=== PATIENT | male | born 1975 | race Caucasian/White ===

== ENCOUNTER 2023-12-01 11:18 | Inpatient (IN) | payer OTHER, SELFPAY ==
[2023-12-01 12:20] LABS: #Basophils 0.05 10x3/uL (0.0-0.2); %Basophils 0.7 % (0.0-1.0); %Eosinophils 1.8 % (0.0-10.0); %Lymphocytes 14.3 % (21.0-51.0); %Monocytes 4.5 % (0.0-10.0); %Neutrophils 78.4 % (42.0-75.0); Hematocrit 46.9 % (42.0-52.0); Mean Corpuscular HGB CONC 34.1 g/dL (32.0-36.0); Mean Corpuscular Hemoglobin 29.4 pg (27.0-31.0); Mean Corpuscular Volume 86.1 fL (78.0-98.0); Mean Platelet Volume 10.2 fL (7.4-10.4); Platelet Count 218 10x3/uL (130-400); RBC Distribution Width 12.2 % (11.5-14.5); Red Blood Cell (RBC) Count 5.45 mill/uL (4.70-6.10)
[2023-12-01 12:38] LABS: Acetaminophen Less than 10 mcg/mL (Less than 10); Alcohol Less than 10.0 mg/dL (Less than 10); Salicylate Less than 8.0 mg/dL (Less than 8.0)
[2023-12-01 12:40] LABS: ALT (SGPT) 29 U/L (8-55); AST (SGOT) 26 U/L (5-34); Albumin 3.9 g/dL (3.5-5.0); Alkaline Phosphatase 67 U/L (40-110); Anion Gap 13 mmol/L (10-20); BUN (Urea Nitrogen) 14 mg/dL (8.9-20.6); Calc. Creatinine Clearance 0 mL/min (70-130); Calcium 9.1 mg/dL (7.8-10.44); Carbon Dioxide 21 mmol/L (22-29); Chloride 106 mmol/L (98-107); Estimated GFR 106; Globulin 3.3 g/dL (2.4-3.5); Glucose 99 mg/dL (70-105); Potassium 4.6 mmol/L (3.5-5.1); Protein, Total 7.2 g/dL (6.0-8.3); Sodium 135 mmol/L (136-145)
[2023-12-01 12:44] LABS: Troponin I Less than 0.010 ng/mL (< 0.028)
[2023-12-01] MEDS ORDERED: Atropine Sulfate 1 mg/10 ml Syringe ONE (14:04)
[2023-12-01] MEDS ORDERED: Acetaminophen 325 MG TAB PO PRN (14:06)
[2023-12-01 14:17] LABS: Bacteria/HPF None Seen HPF (None Seen); Bilirubin Negative (Negative); Blood, Urine Negative (Negative); Clarity Clear (Clear); Glucose, Urine (Dipstick) Normal (Negative); Ketone, Urine Negative (Negative); Leukocyte Negative Leu/uL (Negative); Nitrite Negative (Negative); Protein, Urine (Dipstick) 10 mg/dL (Neg-Trace); RBC/HPF 0-3 HPF (0-3); Specific Gravity, Urine 1.021 (1.002-1.036); Squamous Epithelial None Seen HPF (0-3); Urobilinogen Normal mg/dL (Less than 2); WBC/HPF 0-3 HPF (0-3)
[2023-12-01 14:23] LABS: Amphetamine Not Detected (NotDetected); Barbiturates Screen Not Detected (NotDetected); Benzodiazepine Screen Not Detected (NotDetected); Cocaine Metabolite Screen Not Detected (NotDetected); Methadone Not Detected (NotDetected); Methamphetamine Not Detected (NotDetected); Opiate Screen Not Detected (NotDetected); Oxycodone Screen Not Detected (NotDetected); Phencyclidine (PCP) Not Detected (NotDetected); THC/Cannabinoid Screen Not Detected (NotDetected); Tricyclic Screen Not Detected (NotDetected)
[2023-12-01 15:17] LABS: Lactic Acid 2.07 mmol/L (0.5-2.2)
[2023-12-01 15:27] LABS: Troponin I Less than 0.010 ng/mL (< 0.028)
[2023-12-01] MEDS: Sodium Chloride 0.9% 1,000 ML IV SCH (17:00)
[2023-12-01 19:12] LABS: Troponin I Less than 0.010 ng/mL (< 0.028)
[2023-12-01] MEDS ORDERED: Atropine Sulfate 1 mg/1 ml Vial IVP PRN (19:40)
[2023-12-01] MEDS ORDERED: DOBUTamine 500 mg/250 ml 500 MG in Premix 1 BAG IVPB SCH (19:45)
[2023-12-02 07:52] LABS: #Basophils 0.03 10x3/uL (0.0-0.2); %Basophils 0.3 % (0.0-1.0); %Eosinophils 2.7 % (0.0-10.0); %Neutrophils 72.7 % (42.0-75.0); Hematocrit 46.8 % (42.0-52.0); Hemoglobin 16.2 g/dL (14.0-18.0); Mean Corpuscular HGB CONC 34.6 g/dL (32.0-36.0); Mean Corpuscular Hemoglobin 29.7 pg (27.0-31.0); Mean Corpuscular Volume 85.7 fL (78.0-98.0); Mean Platelet Volume 10.1 fL (7.4-10.4); Platelet Count 211 10x3/uL (130-400); RBC Distribution Width 12.3 % (11.5-14.5); Red Blood Cell (RBC) Count 5.46 mill/uL (4.70-6.10)
[2023-12-02 08:20] LABS: Anion Gap 11 mmol/L (10-20); BUN (Urea Nitrogen) 14 mg/dL (8.9-20.6); Calc. Creatinine Clearance 143 mL/min (70-130); Calcium 8.8 mg/dL (7.8-10.44); Carbon Dioxide 24 mmol/L (22-29); Chloride 111 mmol/L (98-107); Estimated GFR 109; Glucose 98 mg/dL (70-105); Potassium 3.9 mmol/L (3.5-5.1); Sodium 142 mmol/L (136-145)
[2023-12-04 05:48] VITALS: BMI 25.2
[2023-12-04] MEDS ORDERED: DOBUTamine 500 mg/250 ml 500 MG in Premix 1 BAG IVPB PRN (11:19)
[2023-12-05] MEDS ORDERED: Clindamycin/D5W 900 mg/50 ml Premix Bag ONE (14:28)
[2023-12-05] MEDS ORDERED: Midazolam HCl 2 mg/2 ml Vial ONE (15:52)
[2023-12-05] MEDS ORDERED: Propofol 500 MG/50 ML VIAL ONE (16:14)
[2023-12-05] MEDS ORDERED: Heparin 10,000 UNITS/ 10 ML VIAL ONE (16:33)
[2023-12-06 00:32] VITALS: TEMP 98.3
[2023-12-06 09:37] VITALS: BP 117/79
== END 2023-12-06 10:30 | disposition home or self-care (01) | DRG 229 ==
LOC: ERS 11:18 → IMCU/EMU 13:35 → 2NO 12-04 18:01
PROVIDERS: ADMIT Family Medicine; ATTEND Internal Medicine
PROC: 4A00X4Z Measurement of Central Nervous Electrical Activity, External Approach (ICD-10-PCS; 2023-12-01)
PROC: 02H63NZ Insertion of Intracardiac Pacemaker into Right Atrium, Percutaneous Approach (ICD-10-PCS; principal; 2023-12-05)
DX: R00.1 Bradycardia, unspecified (principal); G93.40 Encephalopathy, unspecified; Z88.1 Allergy status to other antibiotic agents; F41.9 Anxiety disorder, unspecified; Z98.890 Other specified postprocedural states; R41.3 Other amnesia
CPT/HCPCS: 33274; 36415; 70450; 70551; 71045; 80048; 80053; 80306; 80307; 81001; 83605; 84146; 84443; 84484; 85025; 85379; 93005; 93306; 93880; 94760; 95816; 96374; C1760; C1769; C1786; J0461; J1644; J2250; J2704; J3490; J7030